=== PATIENT | female | born 2000 ===

== ENCOUNTER 2024-04-26 09:39 | Outpatient (CLI) ==
[~2024-04-26] VITALS: Ht 165.1 cm; Wt 74.6 kg
[2024-04-26] MEDS ORDERED: ONDA-282 PO (09:54)
[2024-04-26] MEDS ORDERED: PRENTAB9 PO (09:55)
== END 2024-04-26 11:00 | disposition home or self-care (01) ==
LOC: M LDO 09:39
PROVIDERS: ATTEND Advanced Practice Midwife
DX: O36.8120 Decreased fetal movements, second trimester, not applicable or unspecified (principal); Z3A.24 24 weeks gestation of pregnancy
CPT/HCPCS: 59025; G0463